=== PATIENT | male | born 1945 | race Caucasian/White ===

== ENCOUNTER → 2017-04-10 | Outpatient (CLI) | payer OTHER | END | disposition home or self-care (01) | LOC: LABPAT 11:37 | PROVIDERS: ATTEND Orthopaedic Surgery | DX: Z01.810 Encounter for preprocedural cardiovascular examination (principal); Z01.812 Encounter for preprocedural laboratory examination | CPT/HCPCS: 87070 ==

== ENCOUNTER 2017-04-16 07:47 | Inpatient (IN) | payer OTHER ==
[2017-04-08 13:11] VITALS: BMI 31.0
[~2017-04-16 07:47] MED LIST: DEXAMETHASONE SOD PHOSPHATE 10 MG/ML 1 ML VIAL IV ONE; LACTATED RINGERS 1,000 ML IV SCH; ONDANSETRON 4 MG/2 ML VIAL IVP ONE; ceFAZolin 2 GM in SODIUM CHLORIDE 0.9% 100 ML IVPB ONE
[2017-04-16 08:21] LABS: Glucose,Whole Blood 198 mg/dL (75-99)
[2017-04-16] MEDS ORDERED: HYDROmorphone 1 MG/ML 1 ML SYRINGE IVP PRN ×2 (09:24)
[2017-04-16] MEDS ORDERED: hydrOXYzine PAMOATE 25 MG CAP PO PRN (09:24)
[2017-04-16] MEDS ORDERED: HYDROcodone/APAP 7.5-325MG 1 EACH TAB PO PRN (09:24)
[2017-04-16] MEDS ORDERED: ACETAMINOPHEN TAB 325 MG TAB PO PRN (09:24)
[2017-04-16] MEDS ORDERED: DIAZEPAM 5 MG TAB PO PRN (09:24)
[2017-04-16] MEDS ORDERED: ONDANSETRON 4 MG/2 ML VIAL IVP PRN (09:24)
[2017-04-16] MEDS ORDERED: NALOXONE 0.4 MG/ML 1 ML VIAL IV PRN (09:24)
[2017-04-16] MEDS ORDERED: BISACODYL 10 MG SUPP RECTAL PRN (09:24)
[2017-04-16] MEDS ORDERED: traMADol 50 MG TAB PO PRN (09:24)
[2017-04-16] MEDS ORDERED: NA PHOS,M-B/NA PHOS,DI-BA 133 ML ENEMA RECTAL PRN (09:24)
[2017-04-16] MEDS ORDERED: MAGNESIUM HYDROXIDE 2,400 MG/10 ML CUP PO PRN (09:24)
[2017-04-16] MEDS ORDERED: TEMAZEPAM 15 MG CAP PO PRN (09:24)
[2017-04-16] MEDS ORDERED: ePHEDrine 50 MG/ML 1 ML AMP ONE (10:01)
[2017-04-16] MEDS ORDERED: SODIUM CHLORIDE 0.9% IRRIG 1,000 ML BTL IRRIGATION ONE (10:01)
[2017-04-16] MEDS ORDERED: MIDAZOLAM 2 MG/2 ML VIAL ONE (10:01)
[2017-04-16] MEDS ORDERED: PROPOFOL 10 MG/ML 20 ML VIAL IV ONE (10:01)
[2017-04-16] MEDS ORDERED: SUCCINYLCHOLINE CHLORIDE 100 MG/5 ML SYR IV ONE (10:01)
[2017-04-16] MEDS ORDERED: LIDOCAINE 1% INJ 10MG/ML (20 ML MDV) ONE (10:01)
[2017-04-16] MEDS ORDERED: HYDROmorphone (PF) 1 MG/ML ONE (10:01)
[2017-04-16] MEDS ORDERED: fentaNYL (PF) 50 MCG/ML 2 ML AMP ONE (10:01)
[2017-04-16] MEDS ORDERED: HEPARIN SODIUM,PORCINE 10,000 UNIT/ML 1 ML VIAL ONE (10:01)
[2017-04-16] MEDS ORDERED: ceFAZolin 3,000 MG in SODIUM CHLORIDE 0.9% IRRIGATIO 3,000 ML IRRIGATION ONE (10:43)
[2017-04-16] MEDS ORDERED: LACTATED RINGERS 1,000 ML IV ONE ×2 (10:53→11:58)
[2017-04-16] MEDS: HYDROmorphone 1 MG/ML 1 ML SYRINGE IVP PRN ×6 (12:29→23:42)
--- NOTE | 2017-04-16 12:38 | XR ---
EXAMINATION TYPE: XR Hip Limited RT DATE OF EXAM: 04/16/2017 CLINICAL HISTORY: Right hip pain and osteoarthritis. TECHNIQUE: Single AP portable view of right hip is obtained immediately postoperatively. COMPARISON: None. FINDINGS: Metallic hardware from right hip arthroplasty is seen and appears satisfactory in alignment and position. There is evidence of recent surgery with vertical skin ivan laterally. Just medial to the acetabular screws overlying punctate densities are present of uncertain etiology. IMPRESSION: As above.
[2017-04-16] MEDS ORDERED: INSULIN LISPRO (humaLOG) 300 UNIT/3 ML VIAL SQ ONE (12:47)
[2017-04-16 12:48] LABS: Glucose,Whole Blood 241 mg/dL (75-99)
[2017-04-16] MEDS ORDERED: BETAMETHASONE DIPROPIONATE 0.05% CREAM 15 GM TUBE TOPICAL PRN (14:59)
[2017-04-16 17:31] LABS: Glucose,Whole Blood 192 mg/dL (75-99)
[2017-04-16] MEDS: ceFAZolin 2 GM in SODIUM CHLORIDE 0.9% 100 ML IVPB SCH ×2 (17:34→23:39)
[2017-04-16] MEDS: INSULIN LISPRO (humaLOG) 300 UNIT/3 ML VIAL SQ SCH ×2 (17:34→21:19)
[2017-04-16] MEDS: glipiZIDE 10 MG TAB PO SCH (17:35)
[2017-04-16] MEDS ORDERED: WARFARIN 5 MG TAB PO ONE (18:00)
[2017-04-16] MEDS: LACTATED RINGERS 1,000 ML IV SCH ×2 (19:30→19:31)
[2017-04-16 20:16] LABS: Glucose,Whole Blood 190 mg/dL (75-99)
[2017-04-16] MEDS: LATANOPROST 0.005% OPHTH DROPS 2.5 ML BTL BOTH EYES SCH (21:18)
[2017-04-16] MEDS: DORZOLAMIDE-TIMOLOL 2-0.5% DROPS 10 ML BTL BOTH EYES SCH (21:18)
[2017-04-16] MEDS: FAMOTIDINE 20 MG TAB PO SCH (21:18)
[2017-04-16] MEDS: PRAVASTATIN SODIUM 20 MG TAB PO SCH (21:19)
[2017-04-16] MEDS: SENNOSIDES-DOCUSATE SODIUM 1 EACH TAB PO SCH (21:19)
[2017-04-16] MEDS: metFORMIN 850 MG TAB PO SCH (21:19)
[2017-04-17] MEDS: HYDROcodone/APAP 7.5-325MG 1 EACH TAB PO PRN ×3 (03:12→17:39)
[2017-04-17] MEDS: LACTATED RINGERS 1,000 ML IV SCH ×2 (05:35→17:51)
[2017-04-17 07:11] LABS: Basophils % (A) 1 %; CHCM 34.1; Eosinophils # (A) 0.3 k/uL (0-0.7); Eosinophils % (A) 4 %; HCT 34.4 % (39.0-53.0); HDW 2.67; HGB 11.9 gm/dL (13.0-17.5); Luc # (Auto) 0.11; Luc % (Auto) 2; Lymphocytes # (A) 1.5 k/uL (1.0-4.8); Lymphocytes % (A) 24 %; MCH 30.7 pg (25.0-35.0); MCHC 34.5 g/dL (31.0-37.0); MCV 88.7 fL (80.0-100.0); Mean Platelet Volume 7.5; Monocytes # (A) 0.4 k/uL (0-1.0); Monocytes % (A) 6 %; Neutrophils # (A) 4.1 k/uL (1.3-7.7); Neutrophils % (A) 64 %; RBC 3.88 m/uL (4.30-5.90); RDW 13.2 % (11.5-15.5); WBC 6.3 k/uL (3.8-10.6); WBC (Perox) 6.77
[2017-04-17 07:14] LABS: INR 1.2 (<1.1); Prothrombin Time 11.8 sec (9.0-12.0)
[2017-04-17 07:27] LABS: Glucose,Whole Blood 189 mg/dL (75-99)
[2017-04-17 07:30] LABS: Anion Gap 8 mmol/L; Blood Urea Nitrogen 13 mg/dL (9-20); Carbon Dioxide 25 mmol/L (22-30); Chloride 102 mmol/L (98-107); Glucose 174 mg/dL (74-99); Non-African American GFR(MDRD) >60 (>60 ml/min/1.73 sqM); Potassium 4.3 mmol/L (3.5-5.1); Sodium 135 mmol/L (137-145)
[2017-04-17] MEDS: INSULIN LISPRO (humaLOG) 300 UNIT/3 ML VIAL SQ SCH ×4 (07:38→21:01)
[2017-04-17] MEDS: glipiZIDE 10 MG TAB PO SCH ×2 (07:38→17:39)
[2017-04-17] MEDS: DORZOLAMIDE-TIMOLOL 2-0.5% DROPS 10 ML BTL BOTH EYES SCH ×2 (07:39→21:00)
[2017-04-17] MEDS: metFORMIN 850 MG TAB PO SCH ×2 (07:39→21:01)
[2017-04-17] MEDS: HYDROCHLOROTHIAZIDE 25 MG TAB PO SCH (07:39)
[2017-04-17] MEDS: LORATADINE 10 MG TAB PO SCH (07:39)
[2017-04-17] MEDS: FAMOTIDINE 20 MG TAB PO SCH ×2 (07:39→21:00)
[2017-04-17] MEDS: amLODIPine 10 MG TAB PO SCH (07:44)
--- NOTE | 2017-04-17 08:25 | CONS ---
DATE OF SERVICE: 04/16/2017 REASON FOR CONSULTATION: Advice regarding diabetes mellitus and other multiple medical issues requested by Dr. Kelley. HISTORY OF PRESENT ILLNESS: This 71-year-old gentleman with a past medical history of multiple medical problems including diabetes mellitus, GERD, hypertension, hyperlipidemia being followed by Dr. Workman and Jennifer Feliz in the outpatient setting was admitted after right total hip joint arthroplasty by Dr. Kelley. There is no history of any fever, rigors or chills. No history of headache, loss of consciousness or seizures. The Accu-Cheks are found to be ( ), 190, 192, 241. PAST MEDICAL HISTORY: History of diabetes, GERD, hypertension, hyperlipidemia, history of DJD. Medications are: 1. Glucophage 850 mg q.h.s. and 1700 mg p.o. q.a.m. 2. Glucotrol 20 mg p.o. b.i.d. 3. Norvasc 10 mg q.am. 4. Ranitidine 300 mg p.o. b.i.d. 5. Pravachol 20 mg q.h.s. 6. Losartan 100 mg p.o. q.a.m. 7. Loratadine 10 mg daily. 8. Xalatan 0.005% one drop both eyes q.h.s. 9. Lortab 1 tablet q.4 p.r.n. 10. Hydrochlorothiazide 25 mg q.a.m. 11. Lidex topical application p.r.n. 12. Dorzolamide timolol 1 drop both eyes b.i.d. 13. Vitamin D3, 2000 daily. 14. Alendronate 70 mg p.o. Saturday. Allergies are none. FAMILY HISTORY: History of cancer in the family. SOCIAL HISTORY: Previous history of smoking, occasional alcohol. REVIEW OF SYSTEM: ENT: No diminished hearing or diminished vision. CARDIOVASCULAR: No angina. RESPIRATORY: No cough or hemoptysis. GI: No nausea. : No dysuria . NERVOUS SYSTEM: No numbness or weakness. ALLERGIES/IMMUNOLOGY: No history of asthma or hayfever. MUSCULOSKELETAL: As mentioned earlier. HEMATOLOGY/ONCOLOGY: No history of anemia. ENDOCRINE: Diabetes mellitus. CONSTITUTIONAL: As mentioned earlier. DERMATOLOGY: Negative. RHEUMATOLOGY: Negative. PSYCHIATRY: As mentioned earlier. PHYSICAL EXAMINATION: The patient is alert and oriented x3. Pulse 77, blood pressure 144/82, respirations 14, temperature normal, pulse ox 96% on 4 L. HEENT: Conjunctivae normal. Oral mucosa moist. NECK: No jugular venous distention. No carotid bruit. No lymph node enlargement. CARDIOVASCULAR: S1 and S2 muffled. No S3 no S4. RESPIRATORY: Breath sounds diminished at the bases. No rhonchi. No crackles. ABDOMEN: Soft, nontender. No mass palpable. LEGS: Status post right hip arthroplasty. NERVOUS SYSTEM: Higher function as mentioned earlier. Moves all 4 limbs. No focal motor or sensory deficits. LYMPHATICS: No lymphadenopathy of the neck, axillae and groin. SKIN: No ulcers, rashes or bleeding. LABS: Accu-Cheks 190, 192, 241. Other labs are not available. ASSESSMENT: 1. Status post right total hip joint arthroplasty. 2. Diabetes mellitus type 2. 3. Hypertension. 4. Hyperlipidemia. 5. History of gastroesophageal reflux disease. 6. History of degenerative joint disease. RECOMMENDATIONS AND DISCUSSION: Recommend to continue the current medications, continue symptomatic treatment. Otherwise, I would recommend resume the home medications. I would also recommend baseline labs. Accu-Cheks a.c. and at bedtime. NovoLog scale. DVT prophylaxis. Incentive spirometry. Will follow the patient closely. Thank you Dr. Kelley for letting us participate in the care of this patient. KESHA
--- NOTE | 2017-04-17 09:07 | P.PN ---
Subjective Principal diagnosis: Status post right hip total joint arthroplasty Patient is postoperative day #1 from right total hip arthroplasty per Dr. Kelley. He has pain at the surgical site as expected but has no new complaints. He denies numbness or tingling that is acute. He denies calf pain. Review of systems a for fever, chills, chest pain or shortness of breath. Objective - Vital Signs Vital signs: Vital Signs Temp 98.7 F 04/17/17 07:00 Pulse 84 04/17/17 07:00 Resp 14 04/17/17 07:00 BP 114/66 04/17/17 07:00 Pulse Ox 96 04/17/17 07:00 Intake & Output 04/16/17 04/17/17 04/17/17 18:59 06:59 18:59 Intake Total 2501 1250 Output Total 625 1800 900 Balance 1876 -550 -900 Intake: IV 2501 Oral 1250 Output: Urine 450 1800 900 Uretheral (Rodrigez) 900 Estimated Blood Loss 175 Other: Voiding Method Indwelling Catheter Indwelling Catheter - Exam Inspection of surgical wound is benign. There is no active bleeding or drainage. He has neurovascular status intact throughout the right lower extremity. Calf is soft and nontender. 2+ dorsalis pedis pulse present and less than 2 second cap refill is present. - Constitutional General appearance: Present: no acute distress - Psychiatric Psychiatric: Present: A&O x's 3, appropriate affect, intact judgment & insight - Labs CBC & Chem 7: 04/17/17 06:42 04/17/17 06:42 Labs: Abnormal Lab Results - Last 24 Hours (Table) 04/16/17 04/16/17 04/16/17 Range/Units 12:45 17:30 20:10 RBC (4.30-5.90) m/uL Hgb (13.0-17.5) gm/dL Hct (39.0-53.0) % Sodium (137-145) mmol/L Glucose (74-99) mg/dL POC Glucose (mg/dL) 241 H 192 H 190 H (75-99) mg/dL 04/17/17 04/17/17 04/17/17 Range/Units 06:42 06:42 07:14 RBC 3.88 L (4.30-5.90) m/uL Hgb 11.9 L (13.0-17.5) gm/dL Hct 34.4 L (39.0-53.0) % Sodium 135 L (137-145) mmol/L Glucose 174 H (74-99) mg/dL POC Glucose (mg/dL) 189 H (75-99) mg/dL Assessment and Plan (1) History of total right hip arthroplasty Narrative/Plan: He will continue with routine postop orthopedic protocol including pain management, wound care, physical therapy, DVT prophylaxis and medical management. Expect that he will discharge to home tomorrow. Status: Acute Time with Patient: Less than 30
[2017-04-17] MEDS: LOSARTAN 50 MG TAB PO SCH (09:45)
[2017-04-17 11:34] LABS: Glucose,Whole Blood 210 mg/dL (75-99)
[2017-04-17] MEDS: CHOLECALCIFEROL 1,000 UNIT TAB PO SCH (12:36)
[2017-04-17] MEDS: MULTIVITAMINS, THERA 1 EACH TAB PO SCH (12:36)
[2017-04-17 14:37] LABS: Hemoglobin A1C 7.9 % (4.2-6.1)
--- NOTE | 2017-04-17 15:46 | P.PN ---
Subjective Principal diagnosis: Patient is admitted for right hip arthroplasty. Patient did pass gas did not move his bowel yet. Objective - Vital Signs Vital signs: Vital Signs Temp 98.1 F 04/17/17 13:51 Pulse 84 04/17/17 13:51 Resp 17 04/17/17 13:51 BP 124/70 04/17/17 13:51 Pulse Ox 93 L 04/17/17 13:51 Intake & Output 04/16/17 04/17/17 04/17/17 18:59 06:59 18:59 Intake Total 2501 1250 480 Output Total 625 1800 1000 Balance 1876 -550 -520 Weight 109.769 kg Intake: IV 2501 Oral 1250 480 Output: Urine 450 1800 1000 Uretheral (Rodrigez) 900 Estimated Blood Loss 175 Other: Voiding Method Indwelling Catheter Indwelling Catheter # Voids 150 - Exam PHYSICAL EXAMINATION: GENERAL: The patient is alert and oriented x3, not in any acute distress. Well developed, well nourished. HEENT: Pupils are round and equally reacting to light. EOMI. No scleral icterus. No conjunctival pallor. Normocephalic, atraumatic. No pharyngeal erythema. No thyromegaly. CARDIOVASCULAR: S1 and S2 present. No murmurs, rubs, or gallops. PULMONARY: Chest is clear to auscultation, no wheezing or crackles. ABDOMEN: Soft, nontender, nondistended, normoactive bowel sounds. No palpable organomegaly. MUSCULOSKELETAL: Refer to orthopedic surgery EXTREMITIES: No cyanosis, clubbing, or pedal edema. NEUROLOGICAL: Gross neurological examination did not reveal any focal deficits. SKIN: No rashes. - Labs CBC & Chem 7: 04/17/17 06:42 04/17/17 06:42 Labs: Abnormal Lab Results - Last 24 Hours (Table) 04/16/17 04/16/17 04/17/17 Range/Units 17:30 20:10 06:42 RBC (4.30-5.90) m/uL Hgb (13.0-17.5) gm/dL Hct (39.0-53.0) % Sodium (137-145) mmol/L Glucose (74-99) mg/dL POC Glucose (mg/dL) 192 H 190 H (75-99) mg/dL Hemoglobin A1c 7.9 H (4.2-6.1) % 04/17/17 04/17/17 04/17/17 Range/Units 06:42 06:42 07:14 RBC 3.88 L (4.30-5.90) m/uL Hgb 11.9 L (13.0-17.5) gm/dL Hct 34.4 L (39.0-53.0) % Sodium 135 L (137-145) mmol/L Glucose 174 H (74-99) mg/dL POC Glucose (mg/dL) 189 H (75-99) mg/dL Hemoglobin A1c (4.2-6.1) % 04/17/17 Range/Units 11:30 RBC (4.30-5.90) m/uL Hgb (13.0-17.5) gm/dL Hct (39.0-53.0) % Sodium (137-145) mmol/L Glucose (74-99) mg/dL POC Glucose (mg/dL) 210 H (75-99) mg/dL Hemoglobin A1c (4.2-6.1) % Assessment and Plan Plan: #1 status post right hip arthroplasty: Pain management and due to prophylaxis per primary service. No medications. 2 Diabetes mellitus type II #3 hypertension #4 hyperlipidemia #5 gastroesophageal reflux disease 6 degenerative joint disease Plan is to continue his medications for above mentioned medical problems. Patient is medically stable to be discharged will follow the patient on as- needed basis
[2017-04-17 16:42] LABS: Glucose,Whole Blood 192 mg/dL (75-99)
[2017-04-17] MEDS ORDERED: WARFARIN 7.5 MG TAB PO ONE (18:00)
[2017-04-17 20:02] LABS: Glucose,Whole Blood 186 mg/dL (75-99)
[2017-04-17] MEDS: LATANOPROST 0.005% OPHTH DROPS 2.5 ML BTL BOTH EYES SCH (21:01)
[2017-04-17] MEDS: PRAVASTATIN SODIUM 20 MG TAB PO SCH (21:01)
[2017-04-17] MEDS: SENNOSIDES-DOCUSATE SODIUM 1 EACH TAB PO SCH (21:06)
[2017-04-18] MEDS: HYDROcodone/APAP 7.5-325MG 1 EACH TAB PO PRN ×4 (01:59→21:45)
[2017-04-18] MEDS: LACTATED RINGERS 1,000 ML IV SCH ×3 (04:48→21:41)
[2017-04-18 07:17] LABS: Glucose,Whole Blood 231 mg/dL (75-99)
[2017-04-18 07:34] LABS: INR 1.2 (<1.1); Prothrombin Time 11.7 sec (9.0-12.0)
[2017-04-18] MEDS: INSULIN LISPRO (humaLOG) 300 UNIT/3 ML VIAL SQ SCH ×4 (07:36→21:39)
[2017-04-18] MEDS: glipiZIDE 10 MG TAB PO SCH ×2 (07:36→18:28)
[2017-04-18] MEDS: DORZOLAMIDE-TIMOLOL 2-0.5% DROPS 10 ML BTL BOTH EYES SCH ×2 (07:37→21:39)
[2017-04-18] MEDS: FAMOTIDINE 20 MG TAB PO SCH ×2 (07:37→21:39)
[2017-04-18] MEDS: amLODIPine 10 MG TAB PO SCH (07:37)
[2017-04-18] MEDS: HYDROCHLOROTHIAZIDE 25 MG TAB PO SCH (07:37)
[2017-04-18] MEDS: metFORMIN 850 MG TAB PO SCH ×2 (07:38→21:40)
[2017-04-18] MEDS: LORATADINE 10 MG TAB PO SCH (07:38)
[2017-04-18] MEDS: LOSARTAN 50 MG TAB PO SCH (07:38)
[2017-04-18] MEDS: MULTIVITAMINS, THERA 1 EACH TAB PO SCH (07:39)
[2017-04-18] MEDS: CHOLECALCIFEROL 1,000 UNIT TAB PO SCH (07:39)
--- NOTE | 2017-04-18 09:03 | P.PN ---
Subjective Principal diagnosis: Primary osteoarthritis right hip Status post total right hip athroplasty This is a 71 year old male POD #2 total right hip athroplasty. Patient is feeling well and states pain is well controlled. He looks well from an orthopaedic standpoint. Vitals are within normal limits and he has no current complaints. Objective - Vital Signs Vital signs: Vital Signs Temp 97.1 F L 04/18/17 01:54 Pulse 85 04/18/17 01:54 Resp 16 04/18/17 01:54 BP 126/68 04/18/17 01:54 Pulse Ox 93 L 04/18/17 01:54 Intake & Output 04/17/17 04/18/17 04/18/17 18:59 06:59 18:59 Intake Total 720 500 Output Total 1000 175 Balance -280 325 Weight 109.769 kg Intake: Oral 720 500 Output: Urine 1000 175 Uretheral (Rodrigez) 900 Other: Voiding Method Urinal Urinal # Voids 150 2 - Exam Patient is A/O x 3 Dressing over the surgical incision is dry and intact, he is neurovascularly intact with good distal pulses and full movement of ankle and toes. - Constitutional General appearance: Present: cooperative, no acute distress - Labs CBC & Chem 7: 04/17/17 06:42 04/17/17 06:42 Labs: Abnormal Lab Results - Last 24 Hours (Table) 04/17/17 04/17/17 04/17/17 Range/Units 06:42 11:30 16:21 POC Glucose (mg/dL) 210 H 192 H (75-99) mg/dL Hemoglobin A1c 7.9 H (4.2-6.1) % 04/17/17 04/18/17 Range/Units 20:00 07:14 POC Glucose (mg/dL) 186 H 231 H (75-99) mg/dL Hemoglobin A1c (4.2-6.1) % Assessment and Plan (1) Primary osteoarthritis of right hip Status: Acute (2) History of total right hip arthroplasty Status: Acute Plan: Clinical findings discussed with patient, expected discharge tomorrow morning.
--- NOTE | 2017-04-18 11:17 | OP ---
DATE OF PROCEDURE: 04/16/2017 SURGEON: Deangelo Kelley DO FINANCIAL ANALYST ACCOUNTANT: Manny Small PREOPERATIVE DIAGNOSIS: Degenerative joint disease right hip. POSTOPERATIVE DIAGNOSIS: Degenerative joint disease right hip. PROCEDURE PERFORMED: Right total hip replacement arthroplasty utilizing Miguel component. ANESTHESIA: General. DESCRIPTION OF THE PROCEDURE: Patient was taken to the operative suite and placed in the supine position.General anesthesia was performed by the department of anesthesiology. She was placed left lateral recumbent position, appropriately secured and padded on surgical table. Betadine prep was carried out over the right hip. Sterile drapes applied in the usual manner. A longitudinal incision was developed over the proximal femur and greater trochanter. Sharp dissection through the subcutaneous tissue was performed. Tensor fascia zaid was incised and a self-retaining retractor was inserted. Gluteus medius was dissected longitudinally and greater trochanter and rotated. The capsule was excised and the leg was adducted and femoral head is dislocated. The femoral neck was shaped with bone saw and femoral head has been measured. The box chisel and reamer was utilized in preparing the canal for size 14 component. Shelving planer was utilized in preparing the canal in preparation for a size 14 component. Alignment and stability noted. The acetabulum was then approached and inspected. Appropriate reaming was carried out in preparation for a size 56 press fit trabecular metal backed acetabular component. The position was well maintained and aligned. The area was irrigated with Pulsavac antibiotic solution. The final trabecular metal cup associated with 2 mm cup then the rim was prepared and the 56 metal back metal cup was impacted in position and showed alignment and stabilized. Cancellous screws were inserted for cup stability. The final 13 mm polyethylene component was aligned and impacted in position and locked in the metal back cup. The leg was than adducted. Trial stem was inserted, impacted in position. The trial neck 7 mm and trial 13 mm head were inserted with stem and the hip was reduced. The hip was aligned and stable. The femoral components were dislocated. The trial femoral components were removed. The area was irrigated with Pulsavac antibiotic solution. The final press fit femoral stem was inserted and impacted in position. The final 32 mm trunnion and head was impacted and the hip was reduced. The hip was aligned and stable. The leg length appeared comparable to the left leg. With the leg now in abduction and stabilized, the gluteus medius was approximated with #3 Vicryl suture. Tensor fascia zaid was reapproximated with # 3Vicryl suture in horizontal mattress fashion. The #2 Vicryl and Quill suture was utilized in reenforcing the tensor fascia zaid and 2-0 Vicryl suture was utilized in approximating the subcutaneous tissue. Skin was approximated with skin clips. Sterile dressing was applied. The patient was secured in abductor pillow splint and transferred to the recovery room in satisfactory postop condition. GROSS PATHOLOGY: There was evidence of degenerative joint disease. Estimated blood loss approximately 250 mL and Cell Saver was utilized 60 mL. MTDD
[2017-04-18 11:51] LABS: Glucose,Whole Blood 129 mg/dL (75-99)
[2017-04-18 16:50] LABS: Glucose,Whole Blood 174 mg/dL (75-99)
[2017-04-18] MEDS ORDERED: WARFARIN 7.5 MG TAB PO ONE (18:00)
[2017-04-18 20:58] LABS: Glucose,Whole Blood 180 mg/dL (75-99)
[2017-04-18] MEDS: LATANOPROST 0.005% OPHTH DROPS 2.5 ML BTL BOTH EYES SCH (21:39)
[2017-04-18] MEDS: PRAVASTATIN SODIUM 20 MG TAB PO SCH (21:41)
[2017-04-18] MEDS: SENNOSIDES-DOCUSATE SODIUM 1 EACH TAB PO SCH (21:46)
[2017-04-19] MEDS: HYDROcodone/APAP 7.5-325MG 1 EACH TAB PO PRN ×2 (05:28→11:52)
[2017-04-19 05:57] VITALS: RESP 18
[2017-04-19 07:03] LABS: Basophils % (A) 0 %; CH 30.5; Eosinophils # (A) 0.3 k/uL (0-0.7); Eosinophils % (A) 3 %; HCT 33.7 % (39.0-53.0); HDW 2.71; HGB 11.9 gm/dL (13.0-17.5); Luc # (Auto) 0.17; Luc % (Auto) 2; Lymphocytes # (A) 1.8 k/uL (1.0-4.8); Lymphocytes % (A) 20 %; MCH 30.9 pg (25.0-35.0); MCHC 35.2 g/dL (31.0-37.0); MCV 87.7 fL (80.0-100.0); Mean Platelet Volume 7.6; Monocytes # (A) 0.5 k/uL (0-1.0); Monocytes % (A) 6 %; Neutrophils # (A) 6.2 k/uL (1.3-7.7); Neutrophils % (A) 69 %; RBC 3.84 m/uL (4.30-5.90); RDW 13.3 % (11.5-15.5); WBC 8.9 k/uL (3.8-10.6)
[2017-04-19 07:08] LABS: INR 1.3 (<1.1)
[2017-04-19 07:11] LABS: Glucose,Whole Blood 211 mg/dL (75-99)
[2017-04-19] MEDS: INSULIN LISPRO (humaLOG) 300 UNIT/3 ML VIAL SQ SCH ×2 (08:07→12:41)
[2017-04-19] MEDS: MULTIVITAMINS, THERA 1 EACH TAB PO SCH (08:08)
[2017-04-19] MEDS: DORZOLAMIDE-TIMOLOL 2-0.5% DROPS 10 ML BTL BOTH EYES SCH (08:08)
[2017-04-19] MEDS: LORATADINE 10 MG TAB PO SCH (08:09)
[2017-04-19] MEDS: glipiZIDE 10 MG TAB PO SCH (08:09)
[2017-04-19] MEDS: FAMOTIDINE 20 MG TAB PO SCH (08:10)
[2017-04-19] MEDS: metFORMIN 850 MG TAB PO SCH (08:10)
[2017-04-19] MEDS: HYDROCHLOROTHIAZIDE 25 MG TAB PO SCH (08:10)
[2017-04-19] MEDS: amLODIPine 10 MG TAB PO SCH (08:11)
[2017-04-19] MEDS: LOSARTAN 50 MG TAB PO SCH (08:11)
[2017-04-19] MEDS: CHOLECALCIFEROL 1,000 UNIT TAB PO SCH (08:12)
[2017-04-19] MEDS: LACTATED RINGERS 1,000 ML IV SCH (08:48)
[2017-04-19 09:06] VITALS: BP 117/66; PULSE 83; TEMP 98.7
--- NOTE | 2017-04-19 09:47 | P.DS ---
Providers Date of admission: 04/16/17 07:47 Expected date of discharge: 04/19/17 Attending physician: Deangelo Kelley Consults: 04/16/17 09:24 Consult Physician Routine Consulting Provider: Dorene Ball Consult Reason/Comments: post op medical management Do you want consulting provider notified?: Yes Primary care physician: Curt Workman - Discharge Diagnosis(es) (1) History of total right hip arthroplasty Patient was admitted to the OR on 04/16/2017 to undergo right total hip arthroplasty. He had failed conservative measures as an outpatient and elected proceed with surgery after given informed consent. He underwent the above procedure which he tolerated well without complication. His postoperative hospital course has remained without complication. On day of discharge he desires discharge to home with home health, tolerating by mouth meds and diet, pain controlled with oral pain medication, voiding without difficulty, passing flatus, denying new complaints, wound is benign, labs within acceptable ranges, afebrile, vital signs stable, calf soft nontender, abdomen soft nontender, neurovascular status intact and no new medical issues. Review of systems is negative for fever, chills, chest pain, shortness breath, nausea,, dizziness, headaches, rashes, bleeding, unsteady gait, slurred speech or other. Current Visit: Yes Status: Acute Procedures: Status post right total hip arthroplasty Patient Condition at Discharge: Good Plan - Discharge Summary New Discharge Prescriptions: New HYDROcodone/APAP 7.5-325MG [[place] 7.5-325] 1 - 2 each PO Q4-6H PRN #90 tab PRN Reason: Pain Sennosides-Docusate Sodium [Senokot-S] 1 tab PO BID #60 tablet Warfarin [Coumadin] 2.5 mg PO Q2D #1 tab Aspirin 325 mg PO BID #60 tab No Action Hydrocodone/Acetaminophen [Lortab 5-325 mg Tablet] 1 tab PO Q4HR PRN PRN Reason: Pain amLODIPine [Norvasc] 10 mg PO QAM metFORMIN HCL [Glucophage] 1,700 mg PO QAM metFORMIN HCL [Glucophage] 850 mg PO HS glipiZIDE [Glucotrol] 20 mg PO BID Ranitidine HCl 300 mg PO BID Losartan Potassium 100 mg PO QAM Loratadine 10 mg PO DAILY Latanoprost [Xalatan 0.005%] 1 drop BOTH EYES HS Hydrochlorothiazide 25 mg PO QAM Fluocinonide 0.05% [Lidex 0.05% cream] 1 applic TOPICAL DAILY PRN PRN Reason: Itching Dorzolamide-Timolol 2%/0.5% [dorzolamide-Timolol 2%/0.5%] 1 drop BOTH EYES BID Cholecalciferol [Vitamin D3] 2,000 unit PO DAILY Alendronate Sodium 70 mg PO WE Pravastatin Sodium [Pravachol] 20 mg PO HS Discharge Medication List Alendronate Sodium 70 mg PO WE 12/10/16 [History] Cholecalciferol [Vitamin D3] 2,000 unit PO DAILY 12/10/16 [History] Dorzolamide-Timolol 2%/0.5% [dorzolamide-Timolol 2%/0.5%] 1 drop BOTH EYES BID 12/10/16 [History] Fluocinonide 0.05% [Lidex 0.05% cream] 1 applic TOPICAL DAILY PRN 12/10/16 [ History] Hydrochlorothiazide 25 mg PO QAM 12/10/16 [History] Hydrocodone/Acetaminophen [Lortab 5-325 mg Tablet] 1 tab PO Q4HR PRN 12/10/16 [ History] Latanoprost [Xalatan 0.005%] 1 drop BOTH EYES HS 12/10/16 [History] Loratadine 10 mg PO DAILY 12/10/16 [History] Losartan Potassium 100 mg PO QAM 12/10/16 [History] Ranitidine HCl 300 mg PO BID 12/10/16 [History] amLODIPine [Norvasc] 10 mg PO QAM 12/10/16 [History] glipiZIDE [Glucotrol] 20 mg PO BID 12/10/16 [History] metFORMIN HCL [Glucophage] 1,700 mg PO QAM 12/10/16 [History] metFORMIN HCL [Glucophage] 850 mg PO HS 12/10/16 [History] Pravastatin Sodium [Pravachol] 20 mg PO HS 04/08/17 [History] Aspirin 325 mg PO BID #60 tab 04/18/17 [Rx] HYDROcodone/APAP 7.5-325MG [[place] 7.5-325] 1 - 2 each PO Q4-6H PRN #90 tab 07/13 /17 [Rx] Sennosides-Docusate Sodium [Senokot-S] 1 tab PO BID #60 tablet 04/18/17 [Rx] Warfarin [Coumadin] 2.5 mg PO Q2D #1 tab 04/18/17 [Rx] Follow up Appointment(s)/Referral(s): Deangelo Kelley DO [Doctor of Osteopathic Medicine] - 2 Weeks Patient Instructions/Handouts: Precautions after Total Joint Replacement Surgery (DC) Activity/Diet/Wound Care/Special Instructions: May bear weight as tolerated with walker. may shower if no drainage from incision. [facility], [facility] - they will call you when it is arranged. Discharge Disposition: HOME WITH HOME HEALTH SERVICES
[2017-04-19 11:52] LABS: Glucose,Whole Blood 166 mg/dL (75-99)
[2017-04-19] MEDS ORDERED: WARFARIN 7.5 MG TAB PO ONE (18:00)
== END 2017-04-19 14:37 | disposition home health service (06) | DRG 470 ==
LOC: 2ORMAIN 07:47 → 3SUR 12:45
PROVIDERS: ADMIT Orthopaedic Surgery; ATTEND Orthopaedic Surgery
PROC: 30233N0 Transfusion of Autologous Red Blood Cells into Peripheral Vein, Percutaneous Approach (ICD-10-PCS; 2017-04-16)
PROC: 0SR902A Replacement of Right Hip Joint with Metal on Polyethylene Synthetic Substitute, Uncemented, Open Approach (ICD-10-PCS; principal; 2017-04-16 09:30)
DX: M16.11 Unilateral primary osteoarthritis, right hip (principal); E11.51 Type 2 diabetes mellitus with diabetic peripheral angiopathy without gangrene; I10 Essential (primary) hypertension; K21.9 Gastro-esophageal reflux disease without esophagitis; E78.5 Hyperlipidemia, unspecified; R26.9 Unspecified abnormalities of gait and mobility; H91.90 Unspecified hearing loss, unspecified ear; Z87.891 Personal history of nicotine dependence; Z79.899 Other long term (current) drug therapy; Z79.84 Long term (current) use of oral hypoglycemic drugs; Z79.83 Long term (current) use of bisphosphonates; Z80.9 Family history of malignant neoplasm, unspecified; Z79.891 Long term (current) use of opiate analgesic; Z87.81 Personal history of (healed) traumatic fracture; Z87.828 Personal history of other (healed) physical injury and trauma; Z87.2 Personal history of diseases of the skin and subcutaneous tissue; Z90.49 Acquired absence of other specified parts of digestive tract; Z83.3 Family history of diabetes mellitus; Z98.42 Cataract extraction status, left eye; Z98.41 Cataract extraction status, right eye; Z86.19 Personal history of other infectious and parasitic diseases; Z86.69 Personal history of other diseases of the nervous system and sense organs
CPT/HCPCS: 73501; 80048; 83036; 85025; 85610; 86850; 86891; 86900; 86901; 88300; 94760